=== PATIENT | female | born 1995 | race Caucasian/White ===

== ENCOUNTER 2021-10-07 14:29 | Inpatient (IN) ==
[2021-10-07] MEDS ORDERED: Metoclopramide 10 MG/2 ML VIAL IVP ONE ×2 (14:34→19:30)
[2021-10-07] MEDS ORDERED: Famotidine 20 MG/2 ML VIAL IVP ONE ×2 (14:34→19:30)
[2021-10-07] MEDS ORDERED: CeFAZolin Syr 3,000MG/30 ML 3,000 MG/30 ML SYRINGE IVPB ONE ×2 (14:34→20:00)
[2021-10-07] MEDS ORDERED: Ringers Solution, Lactated 1,000 ML IVC ONE (14:34)
[2021-10-07] MEDS ORDERED: Ringers Solution, Lactated 1,000 ML ONE ×2 (14:34→20:31)
[2021-10-07] MEDS ORDERED: Lidocaine -MPF 2% 2 ML VIAL ONE (14:39)
[2021-10-07] MEDS ORDERED: *HR* Succinylcholine 200 MG/10 ML VIAL IVP ONE (14:39)
[2021-10-07] MEDS ORDERED: *HR* Propofol 200 MG/20 ML VIAL IVP ONE (14:40)
[2021-10-07 14:44] LABS: Immature Granulocytes % 0.6 % (0-4); Lymphocytes % 22.7 %
[2021-10-07] MEDS ORDERED: Ringers Solution, Lactated 1,000 ML IVC SCH (14:45)
[2021-10-07] MEDS ORDERED: Oxytocin 30 UNIT/503 ML BAG IVC SCH (14:45)
[2021-10-07 14:46] LABS: Basophils # 0.1 K/mcL (0.0-0.2); Basophils % 0.5 %; Eosinophils # 0.2 K/mcL (0.0-0.6); Eosinophils % 1.9 %; Hematocrit 40.7 % (35.3-44.9); Immature Platelets 15.7 % (1.1-6.1); Lymphocytes # 2.7 K/mcL (0.6-4.6); Mean Corpuscular HGB Conc 34.4 g/dL (31.6-35.5); Mean Corpuscular Hemoglobin 31.4 pg (28.0-33.3); Mean Corpuscular Volume 91.3 fL (83.0-100.0); Mean Platelet Volume 12.9 fL (9.4-12.4); Monocytes % 8.4 %; Neutrophils # 7.9 K/mcL (1.6-8.9); Platelet Count 211 K/mcL (140-400); Red Blood Count 4.46 M/mcL (3.82-4.97); Segmented Neutrophils % 65.9 %
[2021-10-07] MEDS ORDERED: Albuterol 2.5 MG/3 ML NEBULIZER IH ONE (15:12)
[2021-10-07 17:12] LABS: Amphetamine Screen,Urine Negative ng/mL (Cutoff=1000); Barbiturate Screen,Urine Negative ng/mL (Cutoff=200); Benzodiazepines Screen,Urine Negative ng/mL (Cutoff=200); Cannabinoid Screen,Urine Negative ng/mL (Cutoff = 50); Cocaine Screen,Urine Negative ng/mL (Cutoff= 300); Opiate Screen,Urine Negative ng/mL (Cutoff=300); Phencyclidine Screen,Urine Negative ng/mL (Cutoff=25)
[2021-10-07] MEDS ORDERED: *HR* Rocuronium Bromide 50 MG/5 ML VIAL ONE (20:19)
[2021-10-07] MEDS ORDERED: Acetaminophen IV 1,000 MG/100 ML BAG IVPB ONE (20:31)
[2021-10-07] MEDS ORDERED: *HR* Ropivacaine/PF 0.5% 20 ML VIAL ONE (20:53)
[2021-10-07] MEDS ORDERED: Ropivacaine/PF 0.2% 20 ML VIAL ONE ×2 (20:54→20:55)
[2021-10-07] MEDS ORDERED: *HR* HYDROMORPHONE 2 MG/ML VIAL ONE ×2 (21:00→21:37)
[2021-10-07] MEDS ORDERED: Ondansetron 4 MG/2 ML VIAL ONE (21:03)
[2021-10-07] MEDS ORDERED: Ketorolac 30 MG/ML VIAL ONE (21:03)
[2021-10-07] MEDS ORDERED: Neostigmine Methylsulfate 3 MG/3 ML SYRINGE ONE (21:11)
[2021-10-07] MEDS ORDERED: *HR* Labetalol 20 MG/4 ML SYRINGE IVP PRN (21:59)
[2021-10-07] MEDS ORDERED: Naloxone 0.4 MG/ML INJ IVP PRN (21:59)
[2021-10-07] MEDS ORDERED: Promethazine 6.25 MG in Water for inj. (sterile) 20 ML IVPB PRN (21:59)
[2021-10-08] MEDS ORDERED: Ondansetron 4 MG/2 ML VIAL IVP PRN (00:21)
[2021-10-08] MEDS ORDERED: Simethicone 80 MG TAB.CHEW PO PRN (00:21)
[2021-10-08] MEDS ORDERED: 0.9 % Sodium Chloride 1,000 ML IVC SCH (00:21)
[2021-10-08] MEDS ORDERED: Metoclopramide 10 MG/2 ML VIAL IVP PRN (00:21)
[2021-10-08] MEDS ORDERED: Rho Immune Globulin 1,500 UNIT SYRINGE IM ONE (00:21)
[2021-10-08] MEDS: Acetaminophen 325 MG TABLET PO SCH ×3 (00:58→21:25)
[2021-10-08] MEDS: Ibuprofen 600 MG TABLET PO SCH ×3 (00:58→21:26)
[2021-10-08] MEDS: *HR* Buprenorphine HCl 8 MG TAB.SUBL SL SCH ×3 (00:58→21:25)
[2021-10-08] MEDS: *HR* OxyCODONE Immed Rel 5 MG TABLET PO PRN ×3 (03:12→15:04)
[2021-10-08 03:36] LABS: Basophils # 0.1 K/mcL (0.0-0.2); Basophils % 0.3 %; Eosinophils # 0.1 K/mcL (0.0-0.6); Eosinophils % 0.5 %; Hematocrit 36.3 % (35.3-44.9); Immature Granulocytes % 0.5 % (0-4); Lymphocytes # 2.7 K/mcL (0.6-4.6); Lymphocytes % 14.3 %; Mean Corpuscular HGB Conc 33.9 g/dL (31.6-35.5); Mean Corpuscular Hemoglobin 31.2 pg (28.0-33.3); Mean Corpuscular Volume 92.1 fL (83.0-100.0); Mean Platelet Volume 12.8 fL (9.4-12.4); Monocytes # 0.9 K/mcL (0.0-1.3); Monocytes % 4.8 %; Neutrophils # 15.2 K/mcL (1.6-8.9); Platelet Count 184 K/mcL (140-400); Red Blood Count 3.94 M/mcL (3.82-4.97); Red Cell Distribution Width 12.8 % (11.5-14.5); Segmented Neutrophils % 79.6 %
[2021-10-08 03:38] LABS: Hemoglobin 12.3 g/dL (11.5-15.4); White Blood Count 19.1 K/mcL (4.3-11.1)
[2021-10-08 07:36] VITALS: O2SAT 96
[2021-10-08] MEDS: Prenatal Vit/FA 1 EACH TABLET PO SCH (08:22)
[2021-10-08] MEDS: *HR* Enoxaparin 60 MG/0.6 ML SYRINGE SQ SCH ×2 (08:23→21:24)
[2021-10-08] MEDS ORDERED: Menthol 1 EACH LOZENGE PO PRN (21:34)
[2021-10-09] MEDS: Ibuprofen 600 MG TABLET PO SCH ×2 (03:30→11:31)
[2021-10-09] MEDS: Acetaminophen 325 MG TABLET PO SCH ×2 (03:32→11:31)
[2021-10-09] MEDS: *HR* OxyCODONE Immed Rel 5 MG TABLET PO PRN (06:45)
[2021-10-09 07:05] VITALS: BP 116/71; PULSE 77; TEMP 97.7
[2021-10-09] MEDS: *HR* Enoxaparin 60 MG/0.6 ML SYRINGE SQ SCH (09:01)
[2021-10-09] MEDS: *HR* Buprenorphine HCl 8 MG TAB.SUBL SL SCH (09:02)
[2021-10-09] MEDS: Prenatal Vit/FA 1 EACH TABLET PO SCH (09:02)
== END 2021-10-09 16:20 | disposition home or self-care (01) | DRG 539 ==
LOC: 1NENULAB 14:29 → 1NENUOBS 10-08
PROVIDERS: ADMIT Obstetrics & Gynecology; ATTEND Obstetrics & Gynecology